=== PATIENT | female | born 1940 | race Two or more races ===

== ENCOUNTER 2024-12-13 11:09 | Emergency (ER) | payer OTHER ==
[~2024-12-13] VITALS: Ht 154.9 cm; Wt 54.9 kg
[2024-12-13] MEDS ORDERED: MEMANTINE H2 MG/1 ML PO (11:36)
[2024-12-13] MEDS ORDERED: GARLIC100 MG PO (11:37)
[2024-12-13] MEDS ORDERED: LEVOTHYROXINE25 MCG PO (11:37)
[2024-12-13] MEDS ORDERED: ENALAPRILAT DIHYDRATE 1.25 MG/ML VIAL IV ONE ×2 (13:15→13:33)
[2024-12-13] MEDS ORDERED: DIPHENHYDRAMINE HCL 50 MG CAPSULE PO ONE (13:30)
[2024-12-13] MEDS ORDERED: ASPIRIN 325 MG TABLET.EC PO ONE (13:30)
[2024-12-13] MEDS ORDERED: DIPHENHYDRAMINE HCL 50 MG/ML VIAL 1ML ONE (13:32)
[2024-12-13 13:47] LABS: BASO % 0.7 % (0.1-1.2); EOS # 0.05 (0.04-0.54); EOS % 0.7 % (0.7-7.0); LYMPH # 1.15 (1.18-3.74); LYMPH % 15.0 % (19.3-53.1); MEAN PLATELET VOLUME 10.10 fl (9.4-12.4); MONO # 0.59 (0.24-0.82); MONO % 7.7 % (4.7-12.5); NEUT # 5.76 (1.56-6.13); NEUT % 75.1 % (34.0-71.1); RED CELL DISTRIBUTION WIDTH 13.4 % (11.6-14.4)
[2024-12-13 14:08] LABS: INR 0.97
[2024-12-13 14:38] LABS: ALT/SGPT 19.0 U/L (12-78); AST/SGOT 23.0 U/L (15-37); BILIRUBIN TOTAL 0.47 mg/dL (0.3-1.2); BUN CREA RATIO 20.0 (7.0-25.0); CREATININE SERUM 0.86 mg/dL (0.55-1.02); GFR 62.71; GLOBULINA 3.2 G/DL (2.4-3.5); GLUCOSE FASTING 87.0 mg/dL (65-100); OSMOLALITY SERUM 288.0 MOSM/KG (275-295); PHOSPHOKINASE CREATININE 154.0 U/L (26-192); TSH 1.08 uIU/mL (0.358-3.74)
[2024-12-13 14:45] LABS: COVID-19 AG NEGATIVE (NEGATIVE)
[2024-12-13] MEDS ORDERED: CLONIDINE HCL 0.1 MG TABLET PO ONE ×2 (16:15→16:30)
[2024-12-13] MEDS ORDERED: NORFLEX100MG PO (19:06)
== END 2024-12-13 20:18 | disposition home or self-care (01) ==
LOC: ER 11:09
DX: R07.89 Other chest pain (principal); I10 Essential (primary) hypertension; E11.9 Type 2 diabetes mellitus without complications; Z20.822 Contact with and (suspected) exposure to COVID-19; Z91.018 Allergy to other foods
CPT/HCPCS: 36415; 71046; 71260; 93005; Q9965